=== PATIENT | male | born 1960 | race Two or more races ===

== ENCOUNTER 2018-06-30 10:38 | Inpatient (IN) | payer MEDICARE | END 2018-07-20 19:10 | disposition home or self-care (01) | LOC: WEST WING 07-04 17:40 → TELE-WESTW 07-06 23:35 → WEST WING 07-07 23:37 → ER 10:38 → TELE-WESTW 07-04 17:45 → OVERFLOW 12:50 → ICU WEST 22:44 | PROC: 0DTJ0ZZ Resection of Appendix, Open Approach (ICD-10-PCS; principal; 2018-06-30 20:10) | PROC: 0DJD4ZZ Inspection of Lower Intestinal Tract, Percutaneous Endoscopic Approach (ICD-10-PCS; 2018-06-30 20:10) | PROC: 0WQF0ZZ Repair Abdominal Wall, Open Approach (ICD-10-PCS; 2018-06-30 20:10) | PROC: 0WJF4ZZ Inspection of Abdominal Wall, Percutaneous Endoscopic Approach (ICD-10-PCS; 2018-06-30 20:10) | PROC: 0DNC0ZZ Release Ileocecal Valve, Open Approach (ICD-10-PCS; 2018-06-30 20:10) | PROC: 5A1945Z Respiratory Ventilation, 24-96 Consecutive Hours (ICD-10-PCS; 2018-06-30 20:10) | DX: A41.9 Sepsis, unspecified organism (principal); J96.00 Acute respiratory failure, unspecified whether with hypoxia or hypercapnia; K35.33 Acute appendicitis with perforation, localized peritonitis, and gangrene, with abscess; R65.21 Severe sepsis with septic shock; J44.0 Chronic obstructive pulmonary disease with (acute) lower respiratory infection; K42.9 Umbilical hernia without obstruction or gangrene; K40.20 Bilateral inguinal hernia, without obstruction or gangrene, not specified as recurrent; K43.9 Ventral hernia without obstruction or gangrene ==